=== PATIENT | male | born 1960 | race Caucasian/White ===

== ENCOUNTER 2020-06-25 18:44 | Emergency (ER) | payer OTHER ==
[~2020-06-25] VITALS: Ht 177.8 cm; Wt 77.3 kg
[2020-06-25] MEDS ORDERED: LORazepam 2 MG/ML, 1ML IVPush ONE (19:00)
[2020-06-25] MEDS ORDERED: SODIUM CHLORIDE 0.9% 1,000ML IVBOLUS ONE (19:00)
[2020-06-25] MEDS ORDERED: SODIUM CHLORIDE FLUSH 10ML SYR IVF ONE (19:00)
[2020-06-25] MEDS ORDERED: LORazepam 2 MG/ML, 1ML ONE (19:00)
[2020-06-25 19:23] LABS: BASOPHILS # (AUTO) 0.01 x10^3/uL (0-0.1); BASOPHILS % (AUTO) 0 % (0-1); EOSINOPHILS # (AUTO) 0.17 x10^3/uL (0-0.4); EOSINOPHILS % (AUTO) 2 % (1-7); LYMPHOCYTES # (AUTO) 3.45 x10^3/uL (1-3.4); LYMPHOCYTES % (AUTO) 42 % (22-44); MD NO; MEAN CORPUSCULAR HEMOGLOBIN 33.6 pg (27.5-34.5); MEAN CORPUSCULAR VOLUME 98.8 fL (81-97); MEAN PLATELET VOLUME 7.8 fL (7.4-10.4); MONOCYTES # (AUTO) 1.04 x10^3/uL (0.2-0.8); MONOCYTES % (AUTO) 13 % (2-9); NEUTROPHILS # (AUTO) 3.62 x10^3/uL (1.8-6.8); NEUTROPHILS % (AUTO) 44 % (42-75); PLATELET COUNT 170 x10^3/uL (130-400); RED CELL DISTRIBUTION WIDTH 12.8 % (9.4-14.8)
[2020-06-25 19:26] LABS: ALANINE AMINOTRANSFERASE 79 U/L (12-78); ALBUMIN 3.9 g/dL (3.4-5.0); ANION GAP 11 mmol/L (5-15); CHLORIDE 105 mmol/L (98-107); CREATININE 0.96 mg/dL (0.7-1.3)
[2020-06-25 19:29] LABS: ALKALINE PHOSPHATASE 78 U/L (45-117); BILIRUBIN,TOTAL 0.3 mg/dL (0.2-1.0)
[2020-06-25] MEDS ORDERED: THIAMINE 100MG TABLET ONE (19:55)
[2020-06-25] MEDS ORDERED: PLEASE ENTER ALLERGIES MC SCH (20:00)
[2020-06-25] MEDS ORDERED: THIAMINE 100MG TABLET PO ONE (20:00)
--- NOTE | 2020-06-25 21:50 | NUR ---
PT SLEEPING, RR EQUAL AND UNLABORED. VSS, FRIEND AT BEDSIDE. PLAN TO MTF. WILL CONTINUE TO MONITOR. SIDE RAILS UP, CALL GRIGGS IN REACH.
--- NOTE | 2020-06-25 22:32 | NUR ---
AROUSES WITH VERBAL, VSS, PO WATER GIVEN, FRIEND AT BEDSIDE. NAD, CALL LIGHT IN REACH, RAILS UP. NO S/S SEIZURE ACTIVITY. WILL CONTINUE TO MONITOR.
[2020-06-25 22:33] VITALS: BP 105/65
--- NOTE | 2020-06-25 22:40 | NUR ---
UP AMBULATES STEADY GAIT, A/OX4, REPORTS FEELING BETTER, DRANK PO FLUIDS, URINATED. FRIEND HERE TO DRIVE HIM BACK TO [place]. VSS. ERP INFORMED OF READINESS FOR DC.
== END 2020-06-25 22:58 | disposition home or self-care (01) ==
LOC: ED 22:56
DX: G92 Toxic encephalopathy (principal); F10.10 Alcohol abuse, uncomplicated; I10 Essential (primary) hypertension; E11.9 Type 2 diabetes mellitus without complications; Y90.9 Presence of alcohol in blood, level not specified
CPT/HCPCS: 36415; 80053; 80307; 82962; 83735; 85025; 96361; 96374; 99283; J2060; J7030